=== PATIENT | female | born 1990 | race Caucasian/White ===

== ENCOUNTER 2024-07-28 10:05 | Outpatient (RCR) | payer OTHER, SELFPAY ==
--- NOTE | 2024-07-28 10:47 | ONC.NURNOTE ---
Patient here for PIV start for radiation. She stated they needed to do a test. No order was seen for this. Called [facility] and they will send order over. Urine collected on patient.
[2024-07-28 10:51] LABS: Ur HCG Qualitative* Negative (Negative)
== END 2025-01-24 23:59 | disposition home or self-care (01) ==
LOC: CCIC 10:05
PROVIDERS: Nurse Practitioner; Visit Provider Clinical Nurse Specialist
DX: C34.02 Malignant neoplasm of left main bronchus (principal); Z01.812 Encounter for preprocedural laboratory examination
CPT/HCPCS: 81025; 99211